=== PATIENT | female | born 1995 | race African-American/Black ===

== ENCOUNTER 2025-02-10 17:24 | Emergency (ER) | payer MEDICAID, OTHER ==
[~2025-02-10] VITALS: Ht 167.6 cm; Wt 84.4 kg
[2025-02-10 18:07] LABS: Hematocrit 41.2 % (36.0-46.0); Hemoglobin 14.1 g/dL (12.2-16.2); Mean Corpuscular Hemoglobin 29.9 pg (28.0-32.0); Mean Corpuscular Volume 87.3 fL (80.0-100.0); Nucleated Red Blood Cells % 0.1 %
[2025-02-10 18:23] LABS: Alanine Aminotransferase 24 U/L (7-40); Albumin 4.6 g/dL (3.2-4.8); Alkaline Phosphatase 87 U/L (46-116); Anion Gap 9 (5-15); BUN/Creatinine Ratio 10.8 (10.0-20.0); Blood Urea Nitrogen 9 mg/dL (9-23); Calcium 9.7 mg/dL (8.7-10.4); Carbon Dioxide 26 mmol/L (20-31); Chloride 103 mmol/L (98-107); Glucose 92 mg/dL (74-106); Magnesium 2.1 mg/dL (1.6-2.6); Potassium 4.1 mmol/L (3.5-5.1); Sodium 138 mmol/L (136-145); Total Protein 7.8 g/dL (5.7-8.2)
[2025-02-10 18:24] LABS: Bilirubin, Total 0.6 mg/dL (0.2-1.0); INR 0.99 (0.9-1.15); Prothrombin Time 10.5 sec (9.3-11.8)
--- NOTE | 2025-02-10 18:24 | ED.PDOC ---
[facility] HPI Comments This is a 30-year-old female, , came to the hospital due to vaginal bleeding since last night. Per patient, she started vaginal bleeding last night, and upon using 1 tamponade bleeding stopped, but upon waking up today morning her bleeding has worsened (and has used tow tamponade since morning). She passes fresh blood per vagina, and has not passed any blood clot. She also reports lower abdominal pain, radiating to the back, describes as aching pain (different from previous pain), which worsened with changing position. She also reports of dizziness upon standing, sneezing and dry cough. She denies fever, chest pain, shortness of breath, headache, dysuria, blurry vision, or any recent sick contact. Per patient, last four delivery were natural (vaginal delivery) and had no bleeding during previous pregnancies. She also denies of any bleeding diastasis at family. Per patient, this is and planned and is almost 3-month-old. Chief Complaint: Vaginal Bleed Time Seen by MD: 17:37 Allergies: Coded Allergies: NO KNOWN ALLERGIES (Unverified , 02/10/25) Information Source: Patient Mode of Arrival: Ambulatory Timing: Days Severity: Moderate Vaginal Discharge: None Vaginal Lesions: None Bleeding Quality: Bright Red Vaginal Mass: None Sexual Activity: Neither Penetration Location: Vaginal Past Medical History PAST MEDICAL HISTORY: Denies Surgical History: Denies all surgeries BUCKRAM SEWER History: No Pertinent BUCKRAM SEWER History 5 Para 4 AB 0 Family History Family History: Reviewed,noncontributory to illness, No family hx of Cancer, No family hx of DM, No family hx of Heart millie, No family hx of HTN, No family hx of Stroke Social History Smoker: Non-Smoker Alcohol: Occasionally Drugs: Denies Drug Use Lives In: Home Constitutional: denies: chills, diaphoresis, fatigue, fever, malaise, sweats, weakness, others EENTM: denies: blurred vision, double vision, ear bleeding, ear discharge, ear drainage, ear pain, ear ringing, eye pain, eye redness, hearing loss, mouth pain, mouth swelling, nasal discharge, nose bleeding, nose congestion, nose pain, photophobia, tearing, throat pain, throat swelling, voice changes, others Respiratory: reports: cough; denies: hemoptysis, orthopnea, SOB at rest, shortness of breath, SOB with excertion, stridor, wheezing, others Cardiovascular: denies: chest pain, dizzy spells, diaphoresis, Dyspnea on exertion, edema, irregular heart beat, left arm pain, lightheadedness, palp itations, PND, syncope, others Gastrointestinal: denies: abdomen distended, abdominal pain, blood streaked bowels, constipated, diarrhea, dysphagia, difficulty swallowing, hematemesis, melena, nausea, poor appetite, poor fluid intake, rectal bleeding, rectal pain, vomiting, others Genitourinary: reports: abnormal vagina bleeding; denies: burning, dyspareunia, dysuria, flank pain, frequency, hematuria, incontinence, pain, , vagina discharge, urgency, others Neurological: reports: dizziness; denies: fainting, headache, left sided numbness, left sided weakness, numbness, paresthesia, pre-existing deficit, right sided numbness, right sided weakness, seizure, speech problems, tingling, tremors, weakness, others Integumetry: denies: bruises, change in color, change in hair/nails, dryness, laceration, lesions, lumps, rash, wounds, others Allergic/Immunocompromised: denies: Difficulty Healing, Frequent Infections, Hives, Itching, others Hematologic/Lymphatic: denies: anemia, blood clots, easy bleeding, easy bruising, swollen glands, others Endocrine: denies: excessive hunger, excessive sweating, excessive thirst, excessive urination, flushing, intolerance to cold, intolerance to heat, unexplained weight gain, unexplained weight loss, others Psychiatric: denies: anxiety, bipolar disorder, depression, hopeless, panic disorder, schizophrenia, sleepless, suicidal, others Physical Exam General Appearance: No Apparent Distress, Normal HEENT: Normal ENT Inspection, Pharynx Normal, TMs Normal Neck: Full Range of Motion, Non-Tender, Normal, Normal Inspection Respiratory: Chest Non-Tender, Lungs Clear, No Accessory Muscle Use, No Respiratory Distress, Normal Breath Sounds Cardiovascular: No Edema, No JVD, No Murmur, No Gallop, Normal Peripheral Pulses, Regular Rate/Rhythm Breast Exam: Deferred Gastrointestinal: Tenderness Genitalia: Deferred Pelvic: Deferred Rectal: Deferred Extremities: No calf tenderness, Normal capillary refill, Normal inspection, Normal range of motion, Non-tender, No pedal edema Neurologic: Alert, manager social media II-XII nml as Tested, No Motor Deficits, Normal Affect, Normal Mood, No Sensory Deficits Cerebellar Function: Normal Reflexes: Normal Skin: Dry, Normal Color, Warm Lymphatic: No Adenopathy Was a procedure done? Was a procedure done?: No Differential Diagnosis (BUCKRAM SEWER) Vaginal Bleeding: - Incomplete, - Threatened, Abruptio Placentae, Ectopic X-Ray, Labs, Meds, VS Vital Signs Date Time Temp Pulse Resp B/P (MAP) Pulse Ox O2 Delivery O2 Flow Rate FiO2 02/10/25 17:27 98.3 95 18 138/74 98.3 Lab Test 02/10/25 17:50 Range/Units White Blood Count 8.4 4.4-10.8 10^3/uL Red Blood Count 4.72 4.0-5.20 10^6/uL Hemoglobin 14.1 12.2-16.2 g/dL Hematocrit 41.2 36.0-46.0 % Mean Corpuscular Volume 87.3 80.0-100.0 fL Mean Corpuscular Hemoglobin 29.9 28.0-32.0 pg Mean Corpuscular Hemoglobin Concent 34.3 32.0-36.0 g/dL Red Cell Distribution Width 12.9 11.8-14.3 % Platelet Count 367 140-450 10^3/uL Mean Platelet Volume 7.4 6.9-10.8 fL Neutrophils (%) (Auto) 57.0 37.0-80.0 % Lymphocytes (%) (Auto) 32.1 10.0-50.0 % Monocytes (%) (Auto) 7.1 0.0-12.0 % Eosinophils (%) (Auto) 2.9 0.0-7.0 % Basophils (%) (Auto) 0.9 0.0-2.0 % Neutrophils # (Auto) 4.8 1.6-8.6 10 ^3/uL Lymphocytes # (Auto) 2.7 0.4-5.4 10 ^3/uL Monocytes # (Auto) 0.6 0-1.3 10 ^3/uL Eosinophils # (Auto) 0.2 0-0.8 10 ^3/uL Basophils # (Auto) 0.1 0-0.2 10 ^3/uL Nucleated Red Blood Cells 0.1 % Prothrombin Time 10.5 9.3-11.8 sec Prothrombin Time INR 0.99 0.9-1.15 Sodium Level 138 136-145 mmol/L Potassium Level 4.1 3.5-5.1 mmol/L Chloride Level 103 98-107 mmol/L Carbon Dioxide Level 26 20-31 mmol/L Anion Gap 9 5-15 Blood Urea Nitrogen 9 9-23 mg/dL Creatinine 0.83 0.550-1.02 mg/dL Glomerular Filtration Rate Calc 96 >90 mL/min BUN/Creatinine Ratio 10.8 10.0-20.0 Serum Glucose 92 74-106 mg/dL Calcium Level 9.7 8.7-10.4 mg/dL Magnesium Level 2.1 1.6-2.6 mg/dL Total Bilirubin 0.6 0.2-1.0 mg/dL Aspartate Amino Transferase (AST) 19 13-40 U/L Alanine Aminotransferase (ALT) 24 7-40 U/L Alkaline Phosphatase 87 46-116 U/L Total Protein 7.8 5.7-8.2 g/dL Albumin 4.6 3.2-4.8 g/dL Beta HCG, Quantitative 6791.5 H 1.5-4.2 mIU/mL Time of 1ST Reevaluation: 20:00 Reevaluation 1ST: Unchanged Time of 2ND Reevaluation: 21:00 Reevaluation 2ND: Unchanged Patient Education/Counseling: Diagnosis, Treatment, Prognosis, Need For Follow Up Family Education/Counseling: No Family Present Comments Patient came to the hospital due to vaginal bleeding and lower abdominal pain. Blood pressure was within normal limits CBC and CMP checked, within normal limits Beta hCG, checked raised Obstetric ultrasound performed, showed Approximately 9 week, 2 day sized intraut erine gestation. No heart rate is detected on M-mode imaging.Given the gestational age, the lack of a detectable heart rate is concerning for failure/intrauterine demise. Spoken with Dr. Ndiaye (correctional lieutenant, through the phone), discussed patient's status and finding, recommended follow up with her correctional lieutenant for possible D&C. Upon subsequent checkup of patient, her dizziness had improved, but still complained of vaginal bleeding. Patient was recommended to follow up with her correctional lieutenant for D&C. Departure 1 Departure Time of Disposition: 21:25 Impression: Primary Impression: demise Additional Impression: Vaginal bleeding Disposition: HOME / SELF CARE / HOMELESS Condition: Fair Critical Care Note Critical Care Time?: No Stability Stability form required: No Heart Score Heart Score: Heart Score Response (Comments) Value History N/A 0 EKG N/A 0 Age <45 0 Risk Factors No known risk factors 0 Troponin N/A 0 Total 0 TATO GUTIERREZ Feb 10, 2025 18:24
--- NOTE | 2025-02-10 20:03 | DVH ---
OB EVALUATION, LESS THAN 14 WEEKS CLINICAL HISTORY: AND VAGINA BLEEDING COMPARISON: None TECHNIQUE: Grayscale, color-flow Doppler, and spectral Doppler ultrasound of the pelvis is performed by transabdominal and transvaginal technique. FINDINGS: Uterus measures 10.3 x 7.6 x 8.4 cm. Intrauterine gestational sac and pole identified. Yolk sac is also noted. Mean gestational sac diameter 4 cm. [place]-rump length 2.3 cm. Average ultrasound age 9 weeks 2 days. Estimated due date 09/13/2025. No heart rate is detected at this time. The right ovary measures 3.6 x 3.4 x 2.6 cm. The left ovary measures 2.5 x 2.1 x 2.2 cm. Both ovarie s demonstrate dopplerable blood flow on spectral analysis. No free fluid identified in the cul-de-sac. No sizable perigestational hematoma. IMPRESSION: Approximately 9 week, 2 day sized intrauterine gestation. No heart rate is detected on M-mode i maging. Given the gestational age, the lack of a detectable heart rate is concerning for fail ure/intrauterine demise. Recommend short-term interval follow-up as well as correlation with serial b eta HCG testing.
[2025-02-10] MEDS: SODIUM CHLORIDE 0.9% 1,000 ML IV ONE (22:04)
[2025-02-10 22:25] VITALS: BP 112/65; TEMP 98.3
[2025-02-10 22:27] VITALS: PULSE 90; RESP 16; O2SAT 96
== END 2025-02-10 22:32 | disposition home or self-care (01) ==
LOC: ER 17:24
DX: O36.4XX0 Maternal care for intrauterine death, not applicable or unspecified (principal); O20.9 Hemorrhage in early pregnancy, unspecified; R10.2 Pelvic and perineal pain; Z3A.09 9 weeks gestation of pregnancy; Z79.899 Other long term (current) drug therapy
CPT/HCPCS: 36415; 76801; 76817; 80053; 83735; 84702; 85025; 85610; 86850; 86900; 86901